=== PATIENT | female | born 1950 | race Two or more races ===

== ENCOUNTER 2018-04-03 13:25 | Emergency (ER) | payer MEDICAID, MEDICARE, OTHER, SELFPAY ==
[~2018-04-03] VITALS: Ht 152.4 cm; Wt 66.2 kg
--- NOTE | 2018-04-03 13:46 | NUR ---
PT AMBULATORY WITH STEADY GAIT TO ROOM
--- NOTE | 2018-04-03 13:50 | NUR ---
BREAK RN: 67 Y/O FEMALE PRESENTS TO ED WITH C/O COUGH. "I'VE HAD A COUGH FOR 3 WEEKS. I LIVE IN [place]." PER SON "SHE HAS HAD SWOLLEN GUMS ON THE RIGHT SIDE. MAYBE AN INFECTED TOOTH." NO C/O N/V/D, TRAUMA, SYNCOPE, CP, SOB. PT PLACED ON CONT PULSE OX,NIBP. SON BEDSIDE.
--- NOTE | 2018-04-03 14:28 | NUR ---
Patient to xray.
[2018-04-03] MEDS ORDERED: SODIUM CHLORIDE FLUSH 10ML SYR IVF ONE (14:30)
[2018-04-03 14:46] LABS: BASOPHILS # (AUTO) 0.04 x10^3/uL (0-0.1); BASOPHILS % (AUTO) 1 % (0-1); EOSINOPHILS # (AUTO) 0.35 x10^3/uL (0-0.4); EOSINOPHILS % (AUTO) 5 % (1-7); LYMPHOCYTES # (AUTO) 2.16 x10^3/uL (1-3.4); LYMPHOCYTES % (AUTO) 29 % (22-44); MD NO; MEAN CORPUSCULAR HEMOGLOBIN 29.3 pg (27.0-34.8); MEAN CORPUSCULAR HGB CONC 33.5 g/dL (32.4-35.8); MEAN CORPUSCULAR VOLUME 87.5 fL (80-100); MEAN PLATELET VOLUME 9.4 fL (7.4-10.4); MONOCYTES # (AUTO) 0.59 x10^3/uL (0.2-0.8); MONOCYTES % (AUTO) 8 % (2-9); NEUTROPHILS % (AUTO) 57 % (42-75); PLATELET COUNT 198 x10^3/uL (130-400); RED BLOOD COUNT 4.36 x10^6/uL (3.82-5.3); RED CELL DISTRIBUTION WIDTH 14.7 % (9.6-15.2)
[2018-04-03 14:57] LABS: ANION GAP 4 mmol/L (5-15); CALCIUM 9.1 mg/dL (8.5-10.1); CHLORIDE 105 mmol/L (98-107); CREATININE 1.23 mg/dL (0.55-1.02)
--- NOTE | 2018-04-03 15:23 | NUR ---
BREAK RN: PT TO CT VIA [facility].
[2018-04-03] MEDS ORDERED: OMNIPAQUE 350 MG/ML, 75ML BOTTLE ONE (15:32)
[2018-04-03] MEDS ORDERED: CEFTRIAXONE PMX 1GM/50ML 50 ML ONE (15:58)
[2018-04-03] MEDS ORDERED: CEFTRIAXONE PMX 1GM/50ML 50 ML IVPB ONE (16:00)
[2018-04-03 16:27] VITALS: BP 159/78
--- NOTE | 2018-04-03 16:51 | NUR ---
Patient/Caregiver given discharge instructions and they have confirmed that they understand the instructions. Patient ambulatory with steady gait.
== END 2018-04-03 19:57 | disposition home or self-care (01) ==
LOC: ED 16:08
DX: L03.211 Cellulitis of face (principal); J18.9 Pneumonia, unspecified organism; I10 Essential (primary) hypertension; E11.9 Type 2 diabetes mellitus without complications; Z85.3 Personal history of malignant neoplasm of breast
CPT/HCPCS: 36415; 70487; 71046; 80048; 82040; 85025; 96374; 99284; J0696; Q9967